=== PATIENT | female | born 1995 | race Two or more races ===

== ENCOUNTER 2022-01-27 13:35 | Emergency (ER) | payer SELFPAY ==
[2022-01-27 13:56] VITALS: BP 115/75; PULSE 89; TEMP 98.1; BMI 27.8
== END 2022-01-27 14:55 | disposition home or self-care (01) ==
LOC: JERFT 13:35
DX: K52.9 Noninfective gastroenteritis and colitis, unspecified (principal)
CPT/HCPCS: 99283-25

== ENCOUNTER 2024-06-15 00:01 | Emergency (ER) | payer SELFPAY ==
[2024-06-15 00:05] VITALS: BP 125/83; PULSE 76; RESP 18; TEMP 97.8; BMI 26.4
== END 2024-06-15 00:52 | disposition home or self-care (01) ==
LOC: JER 00:01
DX: M79.644 Pain in right finger(s) (principal)
CPT/HCPCS: 99283-25

== ENCOUNTER 2024-06-16 11:37 | Emergency (ER) | payer OTHER ==
[2024-06-16 11:54] VITALS: BP 114/78; PULSE 65; RESP 17; TEMP 97.7; BMI 26.4
== END 2024-06-16 13:58 | disposition home or self-care (01) ==
LOC: JERFT 11:37
DX: S61.031A Puncture wound without foreign body of right thumb without damage to nail, initial encounter (principal); W26.8XXA Contact with other sharp object(s), not elsewhere classified, initial encounter
CPT/HCPCS: 99283-25